=== PATIENT | male | born 1945 | race Caucasian/White ===

== ENCOUNTER 2020-04-07 13:59 | Outpatient (CLI) | payer MEDICARE, SELFPAY ==
--- NOTE | ~2020-04-07 | CT_ITS ---
EXAMINATION: CT abdomen pelvis wo con DATE: 04/07/2020 14:22 INDICATION: Left lower quadrant abdominal pain TECHNIQUE: Computed tomography (CT) of the abdomen and pelvis was performed without intravenous contr ast. Automated exposure control and iterative reconstruction technique were employed. Exam dose: 407 .66 mGy-cm total exam DLP. COMPARISON: None. FINDINGS: The lung bases are clear of infiltrate or consolidation. Normal heart size. No pericardial or pleural effusion. Small sliding hiatal hernia. The liver, gallbladder, bile ducts, spleen are unremarkable. There is a solitary calcification of the pancreatic body which may indicate mild chronic pancreatitis. No pancreatic mass lesion or ductal di latation is evident. Normal morphology of the adrenal glands. Bilateral renal cysts are suggested including an upper pole approximately 1.5 cm left renal cyst and multiple right parapelvic renal cysts. There is a punctate nonobstructing upper pole left renal calculus and a 4 mm lower pole left renal ca lculus and another punctate lower pole left renal calculus. No right renal calculus. No ureteral calc ulus or hydroureteronephrosis. The urinary bladder is unremarkable. There is prostate enlargement and prominent prostate calcifications. Normal appendix. There are numerous diverticula of the left and right colon; no CT evidence of divert iculitis. No bowel obstruction, bowel wall thickening, pneumatosis or intraperitoneal free air. There is a fat-containing umbilical hernia. There is diffuse osteopenia. There is degenerative change of the thoracic and lumbar spine. IMPRESSION: Small sliding hiatal hernia Solitary pancreatic body calcification which may indicate mild chronic pancreatitis Bilateral renal cysts Nonobstructive left nephrolithiasis Prostate enlargement and prominent prostate calcifications Diverticulosis of left and right colon Reviewed, dictated and finalized at [facility]. Reviewed, dictated and finalized at location B. ON WEIGHER OPERATOR IMPRESSION: Small sliding hiatal hernia Solitary pancreatic body calcification which may indicate mild chronic pancreat itis Bilateral renal cysts Nonobstructive left nephrolithiasis Prostate enlargement and prominent prostate calcifications Diverticulosis of left and right colon
== END 2020-04-07 14:00 | disposition home or self-care (01) ==
PROVIDERS: PCP Internal Medicine; Visit Provider Internal Medicine
DX: R10.32 Left lower quadrant pain (principal); K44.9 Diaphragmatic hernia without obstruction or gangrene; K86.89 Other specified diseases of pancreas; N28.1 Cyst of kidney, acquired; N20.0 Calculus of kidney; N40.0 Benign prostatic hyperplasia without lower urinary tract symptoms; K57.90 Diverticulosis of intestine, part unspecified, without perforation or abscess without bleeding
CPT/HCPCS: 74176

== ENCOUNTER 2020-07-20 19:35 | Emergency (ER) | payer MEDICARE, SELFPAY ==
--- NOTE | ~2020-07-20 | XR_ITS ---
EXAMINATION: XR ankle LT min 3V DATE: 07/20/2020 21:07 INDICATION: Left ankle pain TECHNIQUE: Anteroposterior, lateral, mortise, and additional oblique view of the ankle were obtained. COMPARISON: None. FINDINGS: There is no fracture, dislocation, or subluxation. The bones, soft tissues, and joint space s are normal. IMPRESSION: 1. No acute osseous abnormality. Reviewed, dictated and finalized at location A. T METAL WORKER MAINTENANCE
[2020-07-20 19:42] VITALS: BP 119/76; PULSE 89; RESP 18; TEMP 36.2; O2SAT 96
[2020-07-20 21:00] LABS: Basophils Absolute Auto 0.1 K/mm3 (0.0-0.1); Basophils Percent Auto 0.7 % (0.2-1.2); Eosinophils Absolute Auto 0.8 K/mm3 (0-0.3); Eosinophils Percent Auto 7.7 % (0-4.4); Hematocrit 43.5 % (42.0-52.0); Hemoglobin 14.8 g/dL (14.0-18.0); Immature Granulocyte Absolute 0.06 K/mm3 (0.00-0.031); Immature Granulocyte Percent A 0.6 % (0-0.5); Lymphocytes Absolute Auto 2.05 K/mm3 (0.9-3.2); Lymphocytes Percent Auto 20.4 % (18.3-44.2); Mean Corpuscular Volume 94.2 fl (80-100); Mean Platelet Volume 9.8 fl (7.4-10.4); Monocytes Absolute Auto 1.1 K/mm3 (0.1-0.6); Monocytes Percent Auto 10.9 % (2.6-8.5); Neutrophils Percent Auto 59.7 % (45.5-73.1); Platelet Count Result 214 k/mm3 (150-375); Red Blood Count 4.62 M/mm3 (4.6-6.20); White Blood Count 10.1 K/mm3 (4.5-10.0)
--- NOTE | 2020-07-20 21:08 | ED.GENADULT ---
HPI - General Adult General Chief complaint: Extremity Problem,Nontraumatic Stated complaint: left ankle swelling Time Seen by Provider: 07/20/20 20:47 Source: patient History of Present Illness HPI narrative: Patient is a 74 y/o complaining of left ankle pain for 1 week. He describes his pain as aching and rates it as 3/10. He states that walking aggravates his pain. There is no pain radiation. He denies any injury. Related Data Home Medications Medication Instructions Recorded Confirmed aspirin 81 mg tablet,delayed 81 mg PO DAILY 04/06/19 03/31/20 release Allergies Allergy/AdvReac Type Severity Reaction Status Date / Time latex AdvReac Mild Rash Verified 07/20/20 19:46 Review of Systems Constitutional: Constitutional: Denies chills, Denies fever(s), Denies headache(s) and Denies weakness Eyes: Eyes: Denies blurry vision ENT: Denies headache(s) and Denies neck pain Cardiovascular: Cardiovascular: Denies chest pain and Denies dyspnea Respiratory: Respiratory: Denies cough and Denies dyspnea Gastrointestinal: Gastrointestinal: Denies abdominal pain, Denies diarrhea, Denies nausea and Denies vomiting Genitourinary: Genitourinary: Denies hematuria and Denies dysuria Musculoskeletal: Musculoskeletal: Reports as per HPI, Denies back pain, Reports arthralgias (left ankle pain) and Denies neck pain Neurologic: Denies headache(s) and Denies weakness PMFSH Past Medical History Medical History (Updated 07/21/20 @ 00:00 by Background Daemon) Family history of leukemia Other and unspecified hyperlipidemia Paroxysmal atrial fibrillation Sleep apnea in adult Surgical History Surgical History H/O colonoscopy H/O hernia repair History of knee replacement, total Family History Family History Mother Family history of osteoporosis Family history of Parkinson's disease, Onset Age: 76 Patient's mother is Sibling Patient's sister is in good health Patient's brother is in good health Father Patient's father is Other Family history of carrier of genetic disease Family history of leukemia Social History Social History Smoking status: Former smoker Smoking end date: 05/22/73 Gender identity (if verbalized by the patient): Male Exam Const: General: no acute distress and well developed Orientation/consciousness: oriented to person, oriented to place, oriented to time and patient oriented x3 HENMT: Head: normocephalic Ears: external ears normal General nose exam: Normal external nose present Eyes: General: appearance normal, both eyes and all related structures Conjunctivae: conjunctivae normal Neck: Neck: normal visual inspection and full ROM Chest: Chest palpation & inspection: normal inspection of the chest and no tenderness Resp: Effort & Inspection: normal respiratory effort Auscultation: clear to auscultation bilaterally Cardio: Rate: regular rate Rhythm: regular rhythm GI: GI Palp: No abdominal tenderness and Yes Soft to palpation Skin: General skin exam: normal color and turgor normal Neuro: General: oriented to person, oriented to place, oriented to time and patient oriented x3 Cognition (Neuro): normal cognition Extrem: General: full ROM Left lower extremity: ankle Details: tenderness Location: of the medial malleolus, pitting edema and warmth Psych: Appearance: grossly normal Mental Status: mental status grossly normal Affect: normal affect Course Vital Signs Vital signs: Vital Signs Temperature 36.2 C L 07/20/20 19:42 Pulse Rate 89 07/20/20 19:42 Respiratory Rate 18 07/20/20 19:42 Blood Pressure 119/76 07/20/20 19:42 Pulse Oximetry 96 07/20/20 19:42 Temperature 36.2 C L 07/20/20 19:42 Pulse Rate 89 07/20/20 19:42 Respiratory Rate 18
[2020-07-20 21:12] LABS: Anion Gap 6 mmol/L (8-16); Blood Urea Nitrogen 26 mg/dL (9-20); Calcium 9.6 mg/dL (8.4-10.2); Carbon Dioxide 28 mmol/L (22-30); Chloride 108 mmol/L (98-107); Estimated CRCL calculation 47 ml/min; Estimated Glomerular Filt Rate 59; Glucose 115 mg/dL (75-110); Potassium 4.2 mmol/L (3.4-5.0); Sodium 142 mmol/L (137-145); Uric Acid 6.9 mg/dL (3.5-8.5)
[2020-07-20] MEDS: predniSONE 20 MG TABLET PO (22:02)
[2020-07-20] MEDS: COLCHICINE 0.6 MG TABLET 1.2 MG PO (22:02)
== END 2020-07-20 22:44 | disposition home or self-care (01) ==
PROVIDERS: Emergency Provider Emergency Medicine; PCP Internal Medicine
DX: M10.9 Gout, unspecified (principal); I48.0 Paroxysmal atrial fibrillation; E78.5 Hyperlipidemia, unspecified; G47.30 Sleep apnea, unspecified; Z87.891 Personal history of nicotine dependence; Z96.659 Presence of unspecified artificial knee joint; Z79.82 Long term (current) use of aspirin
CPT/HCPCS: 36415; 73610; 80048; 84550; 85025; 99283; A9270; J7512

== ENCOUNTER 2020-07-29 16:59 | Outpatient (CLI) | payer MEDICARE, SELFPAY ==
--- NOTE | ~2020-07-29 | MR_ITS ---
EXAMINATION: MR ankle LT wo con DATE: 07/29/2020 17:51 INDICATION: Left ankle pain. TECHNIQUE: Magnetic resonance imaging (MRI) of the left ankle was performed without intravenous contr ast. Sequences included sagittal PD-weighted FS FSE, sagittal PD-weighted FSE, coronal PD-weighted FS FSE, coronal PD-weighted FSE, axial PD-weighted FS FSE, and axial PD-weighted FSE. COMPARISON: Left ankle radiographs 07/20/2020 FINDINGS: Medial ankle ligaments: There are changes of prior sprain of the deltoid ligament characterized by thickening and increased s ignal intensity in the superficial component and indistinctness of fibers in the deep component. Lateral ankle ligaments: The anterior and posterior talofibular ligaments are intact. There are changes of prior sprains of ca lcaneofibular ligament and anterior tibiofibular ligament characterized by thickening and increased s ignal intensity. Posterior tibiofibular ligament is intact. Tendons: The medial and anterior ankle tendons are normal. The peroneal tendons are normal. Achilles tendon is normal. Plantar fascia: Normal. Bones/other: Bone alignment is normal. There is partial-thickness cartilage loss in the tibiotalar joint, worst an teromedially. There is mild osteoarthritis of the midfoot joints. Fluid: There are small ankle joint and subtalar joint effusions. There is a small talonavicular joint effusi on. There is subcutaneous edema around the ankle. IMPRESSION: 1. Moderate chondrosis of tibiotalar joint. Mild midfoot osteoarthritis. 2. Changes of prior medial and lateral ankle sprains. Reviewed, dictated and finalized at location A. 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
== END 2020-07-29 17:00 | disposition home or self-care (01) ==
PROVIDERS: PCP Internal Medicine; Visit Provider Internal Medicine
DX: M19.072 Primary osteoarthritis, left ankle and foot (principal)
CPT/HCPCS: 73721

== ENCOUNTER 2022-08-04 08:15 | Outpatient (CLI) | payer MEDICARE, SELFPAY ==
[2022-08-04 19:45] LABS: Alanine Aminotransferase 17 U/L (6-50); Albumin Level 4.1 g/dL (3.5-5.1); Alkaline Phosphatase 92 U/L (38-126); Anion Gap 5 mmol/L (8-16); Aspartate Amino Transferase 31 U/L (17-59); Bilirubin,Total 0.9 mg/dL (0.2-1.3); Blood Urea Nitrogen 22 mg/dL (9-20); Calcium 9.4 mg/dL (8.4-10.2); Carbon Dioxide 28 mmol/L (22-30); Chloride 108 mmol/L (98-107); Cholesterol 174 mg/dL (0-200); Estimated Glomerular Filt Rate > 60; Glucose 70 mg/dL (65-110); HDL Direct 47 mg/dL; Potassium 4.3 mmol/L (3.4-5.0); Sodium 141 mmol/L (137-145); Triglycerides 65 mg/dL (<150)
[2022-08-04 19:55] LABS: LDL Cholesterol Direct 95 mg/dL
[2022-08-04 20:47] LABS: Hematocrit 43.5 % (42.0-52.0); Hemoglobin 14.3 g/dL (14.0-18.0); Mean Corpuscular HGB Conc 32.9 g/dl (32-36); Mean Corpuscular Hemoglobin 31.3 pg (26-34); Mean Corpuscular Volume 95.2 fl (80-100); Mean Platelet Volume 10.3 fl (7.4-10.4); Platelet Count Result 219 k/mm3 (150-375); Red Blood Count 4.57 M/mm3 (4.6-6.20); Red Cell Distribution Width 13.6 % (11.5-14.5); White Blood Count 7.3 K/mm3 (4.5-10.0)
[2022-08-04 20:57] LABS: Hemoglobin A1C 5.2 % (<5.7)
[2022-08-07 19:58] LABS: PSA, Free 0.25 ng/mL; PSA, Total 0.9 ng/mL (<=4.0)
== END 2022-08-04 08:16 | disposition home or self-care (01) ==
LOC: ANHGOSHLAB 08:18
PROVIDERS: PCP Internal Medicine; Visit Provider Internal Medicine
DX: R53.83 Other fatigue (principal); Z79.899 Other long term (current) drug therapy; N40.1 Benign prostatic hyperplasia with lower urinary tract symptoms; N13.8 Other obstructive and reflux uropathy; I48.0 Paroxysmal atrial fibrillation
CPT/HCPCS: 36415; 80053; 80061; 83036; 84153; 84154; 84443; 85027

== ENCOUNTER 2023-04-18 08:30 | Outpatient (CLI) | payer MEDICARE, SELFPAY ==
[2023-04-18 09:04] LABS: Hematocrit 45.5 % (42.0-52.0); Hemoglobin 14.7 g/dL (14.0-18.0); Mean Corpuscular HGB Conc 32.3 g/dl (32-36); Mean Corpuscular Hemoglobin 31.3 pg (26-34); Mean Platelet Volume 10.3 fl (7.4-10.4); Platelet Count Result 213 k/mm3 (150-375); Red Blood Count 4.69 M/mm3 (4.6-6.20); Red Cell Distribution Width 13.4 % (11.5-14.5); White Blood Count 7.3 K/mm3 (4.5-10.0)
[2023-04-18 09:27] LABS: Alanine Aminotransferase 18 U/L (6-50); Albumin Level 4.2 g/dL (3.5-5.1); Alkaline Phosphatase 86 U/L (38-126); Anion Gap 6 mmol/L (8-16); Aspartate Amino Transferase 38 U/L (17-59); Bilirubin,Total 1.1 mg/dL (0.2-1.3); Blood Urea Nitrogen 19 mg/dL (9-20); Calcium 9.4 mg/dL (8.4-10.2); Carbon Dioxide 30 mmol/L (22-30); Chloride 105 mmol/L (98-107); Estimated Glomerular Filt Rate > 60; Glucose 89 mg/dL (65-110); Potassium 4.4 mmol/L (3.4-5.0); Sodium 141 mmol/L (137-145)
== END 2023-04-18 08:31 | disposition home or self-care (01) ==
LOC: ANHLAB 08:33
PROVIDERS: PCP Family Medicine; Visit Provider Family Medicine
DX: E78.5 Hyperlipidemia, unspecified (principal); G47.33 Obstructive sleep apnea (adult) (pediatric); I48.0 Paroxysmal atrial fibrillation; N13.8 Other obstructive and reflux uropathy; N40.1 Benign prostatic hyperplasia with lower urinary tract symptoms; R53.83 Other fatigue
CPT/HCPCS: 36415; 80053; 85027

== ENCOUNTER 2023-08-16 07:55 | Outpatient (CLI) | payer MEDICARE, SELFPAY ==
[2023-08-16 09:31] LABS: Hematocrit 46.2 % (42.0-52.0); Hemoglobin 14.6 g/dL (14.0-18.0); Mean Corpuscular HGB Conc 31.6 g/dl (32-36); Mean Corpuscular Hemoglobin 31.1 pg (26-34); Mean Corpuscular Volume 98.3 fl (80-100); Mean Platelet Volume 10.7 fl (7.4-10.4); Platelet Count Result 201 k/mm3 (150-375); Red Cell Distribution Width 13.3 % (11.5-14.5); White Blood Count 6.9 K/mm3 (4.5-10.0)
[2023-08-16 09:50] LABS: Alanine Aminotransferase 12 U/L (6-50); Alkaline Phosphatase 82 U/L (38-126); Anion Gap 4 mmol/L (4-12); Aspartate Amino Transferase 29 U/L (17-59); Bilirubin,Total 0.9 mg/dL (0.2-1.3); Blood Urea Nitrogen 23 mg/dL (9-20); Calcium 9.6 mg/dL (8.4-10.2); Carbon Dioxide 28 mmol/L (22-30); Chloride 106 mmol/L (98-107); Cholesterol 176 mg/dL (0-200); Estimated Glomerular Filt Rate > 60; Glucose 86 mg/dL (65-110); HDL Direct 53 mg/dL; Potassium 4.1 mmol/L (3.4-5.0); Sodium 138 mmol/L (137-145); Triglycerides 60 mg/dL (<150)
[2023-08-16 10:02] LABS: LDL Cholesterol Direct 103 mg/dL
[2023-08-16 10:20] LABS: Prostate Specific Antigen 1.7 ng/mL (< OR = 4.0)
== END 2023-08-16 07:56 | disposition home or self-care (01) ==
PROVIDERS: PCP Family Medicine; Visit Provider Family Medicine
DX: Z12.5 Encounter for screening for malignant neoplasm of prostate (principal); E78.5 Hyperlipidemia, unspecified; G47.33 Obstructive sleep apnea (adult) (pediatric); I48.0 Paroxysmal atrial fibrillation; N13.8 Other obstructive and reflux uropathy; N40.1 Benign prostatic hyperplasia with lower urinary tract symptoms; R53.83 Other fatigue
CPT/HCPCS: 36415; 80053; 80061; 84153; 85027; G0103

== ENCOUNTER 2024-02-27 09:52 | Outpatient (CLI) | payer MEDICARE, SELFPAY ==
[2024-02-27 10:17] LABS: Hematocrit 45.4 % (42.0-52.0); Hemoglobin 14.8 g/dL (14.0-18.0); Mean Corpuscular HGB Conc 32.6 g/dl (32-36); Mean Corpuscular Hemoglobin 31.6 pg (26-34); Mean Platelet Volume 9.8 fl (7.4-10.4); Platelet Count Result 196 k/mm3 (150-375); Red Blood Count 4.68 M/mm3 (4.6-6.20); Red Cell Distribution Width 13.2 % (11.5-14.5)
[2024-02-27 10:34] LABS: Alanine Aminotransferase 14 U/L (6-50); Albumin Level 4.3 g/dL (3.5-5.1); Alkaline Phosphatase 91 U/L (38-126); Anion Gap 8 mmol/L (4-12); Aspartate Amino Transferase 35 U/L (17-59); Bilirubin,Total 1.6 mg/dL (0.2-1.3); Blood Urea Nitrogen 22 mg/dL (9-20); Calcium 9.6 mg/dL (8.4-10.2); Carbon Dioxide 29 mmol/L (22-30); Chloride 103 mmol/L (98-107); Estimated Glomerular Filt Rate > 60; Glucose 85 mg/dL (65-110); Potassium 4.3 mmol/L (3.4-5.0); Sodium 140 mmol/L (137-145)
== END 2024-02-27 09:53 | disposition home or self-care (01) ==
PROVIDERS: PCP Family Medicine; Visit Provider Family Medicine
DX: G47.30 Sleep apnea, unspecified (principal); I48.0 Paroxysmal atrial fibrillation; R53.83 Other fatigue; N40.1 Benign prostatic hyperplasia with lower urinary tract symptoms; N13.8 Other obstructive and reflux uropathy; Z12.5 Encounter for screening for malignant neoplasm of prostate
CPT/HCPCS: 36415; 80053; 85027

== ENCOUNTER 2024-12-04 10:01 | Outpatient (CLI) | payer MEDICARE, SELFPAY ==
--- OUTSIDE RECORDS SUMMARY | 2024-12-04 10:14 | XMS_ITS | Clinical Summary ---
Author Organization [facility] [employer] Address [address] [place] [address] Care Team Providers Care General Utility Worker Name Role Phone Tyler Del Castillo DO Primary Care Provider Kalpesh Pavon MD Unavailable [phone] Source Comments [facility],non-owned Affiliates and Associated Physician Practices is amultiple site organization consisting of ambulatory clinics and hospital sitesin [place], [place], [place] and [place]. This disclosure is being madepursuant to the Care Everywhere program and may not contain all information available regarding this patient. Last updated 18.[facility] [employer] Allergies Active Allergy Reactions Criticality Noted Date Comments Latex Rash Medium Medications * Be aware that medications may not be up to date on this document. Alwaysverify current medications with the patient. finasteride (PROSCAR) 5 MG tablet TK 1 T PO QD 3 07/31/2015 Active aspirin (ASPIRIN) 81 MG tablet Take 81 mg by mouth once daily Active tamsulosin (Flomax) 0.4 MG capsule TAKE 1 CAPSULE BY MOUTH EVERY DAY AT BEDTIME 03/07/2024 Active celecoxib (CeleBREX) 200 MG capsule Take 1 (one) capsule by mouth once daily 30 capsule 07/30/2024 Active Active Problems Problem Noted Date Diagnosed Date Primary osteoarthritis of left knee 08/09/2024 Status post right knee replacement 08/09/2024 Lipid screening 09/23/2019 Overview (09/23/2019): 11/07 Cholesterol 175 HDL 62 LDL 97 triglyceride 69, glucose 86 ARELI on CPAP 09/19/2019 Syncope, near 09/18/2019 Overview (10/21/2019): 10/08 Holter x 2 weeks: no critical tachy/po per Dr. Pinto Palpitations 09/18/2019 Dilated cardiomyopathy 09/17/2019 Overview (10/21/2019): 07/30 Echo: EF 60%, mild MR/TR, trace PI, PA SP 28 10/30 Lexiscan nuclear: Large inferior/inferoseptal infarct with tamara-infarct ischemia, EF 61% 10/30 cath: EF 45-50%, LV 131/13, normal coronary arteries 12/04 Echo: EF 45%, mild LVH, cannot rule out LV thrombus, mild , mean gradient 9, trace TR, RVSP 28 09/08 Echo: EF 40%, upper normal LV size, mild AV sclerosis, probably mild PI, trace MR/TR, RVSP 28-33 10/08 Cardiac MRI: EF 49%, mild LVE, no edema/infarct/inflammation/infiltration, normal RV, mild LAE, mild AI, no LV thrombus LBBB (left bundle branch block) PAF (paroxysmal atrial fibrillation) Overview (09/17/2019): 07/30 EKG: AF at 134, LBBB at 128 ms, nonspecific ST/TW abnormality, leftward axis, delayed R-wave progression 09/29 EKG: SB at 56, LBBB at 145 ms 11/04 EKG: SB at 57, LBBB at 151 ms 01/04 EKG: SB at 56, LBBB at 142 ms, delayed R-wave progression 04/09 EKG: SR at 73, PVC, possible LAE, LBBB at 138 ms Resolved Problems Problem Noted Date Diagnosed Date Resolved Date Arthritis of knee 05/08/2019 09/17/2019 Atrial fibrillation 09/17/19 20 Family History Medical History Relation Name Comments Cancer - Other Father Relation Name Status Comments Father Social History Tobacco Use Types Packs/Day Years Used Date Smoking Tobacco: Former Cigarettes Q uit: 06/30/1974 Smokeless Tobacco: Never Alcohol Use Standard Drinks/Week Comments Not Currently 0 (1 standard drink = 0.6 oz pur e alcohol) Sex and Gender Information Value Date Recorded Sex Assigned at Not on file Legal Sex Male 3:32 PM CDT Gender Identity Not on file Sexual Orientation Not on file Last Filed Vital Signs Vital Sign Reading Time Taken Comments Blood Pressure 132/73 09/19/2019 8:24 AM CDT Pulse 63 09/19/2019 8:24 AM CDT Temperature 36.3 C (97.3 F) 05/10/2019 7:37 AM DOPE FIRER Respiratory Rate 18 05/10/2019 7:37 AM DOPE FIRER Oxygen Saturation 96% 09/19/2019 8:24 AM CDT Inhaled Oxygen Concentration - - Weight 81.6 kg (180 lb) 09/19/2019 8:24 AM CDT Height 170.2 cm (5' 7) 09/19/2019 8:24 AM CDT Body Mass Index 28.19 09/19/2019 8:24 AM CDT Plan of Treatment Health Maintenance Due Date Last Done Comments MEDICARE AWV 12 MONTHS 1945 HEPATITIS C SCREENING 08/27/1964 DTAP/TDAP/TD VACCINES (1 - Tdap) 1965 PNEUMOCOCCAL VACCINE 50+ (1 of 1 - PCV) 1996 ZOSTER VACCINE (1 of 2) 1996 Respiratory Syncytial Virus (RSV) Vaccine Pt: or over 60 yrs (1 - 1-dose 75+ series) 2021 COVID-19 VACCINE ( - 2023-2 5 season) 2024 DEPRESSION SCREENING 05/22/2024 INFLUENZA VACCINE (#1) 2025 HEPATITIS B VACCINE Aged Out No longe r eligible based on patient's age to complete this topic HIB VACCINE Aged Out No longer eligi ble based on patient's age to complete this topic HPV VACCINE Aged Out No longer eligi ble based on patient's age to complete this topic MENINGOCOCCAL (Group B) VACC INE SHARED DECISION-MAKING Aged Out No longer eligibl e based on patient's age to complete this topic MENINGOCOCCAL GROUPS A/C/Y/W VACCINE Aged Out No longer eligible b ased on patient's age to complete this topic Medical Devices Implanted Type Area Trust Evaluation Supervisor Device Identifier Shelf Expiration Date Model / Serial / Lot Cmnt Bone Djo Srg Cblt 40gm Hvisc Strl Implanted:Qty: 2 on 05/08/2019 by Kalpesh Pavon MD at [facility] Right: Knee [employer] 06/13/2020 [id number] / / [id number] Tray Tib 83mm Kn Cocr I Beam Implanted:Qty: 1 on 05/08/2019 by Kalpesh Pavon MD at [facility] Right: Knee [employer] 03/28/2029 [id number] / / [id number] Cmpnt Ptlr 31mm 1 Pg Wire Ascnt Arcm Kn Implanted:Qty: 1 on 05/08/2019 by Kalpesh Pavon MD at [facility] Right: Knee [employer] 03/29/2024 [id number] / / [id number] Cmpnt Fem Kn Rt Cr Cmnt Prm Vngrd Intlk Implanted:Qty: 1 on 05/08/2019 by Kalpesh Pavon MD at [facility] Right: Knee [employer] 03/23/2029 [id number] / / [id number] Brng [id number] Vngrd Arcm Kn Ant Stab Implanted:Qty: 1 on 05/08/2019 by Kalpesh Pavon MD at [facility] Right: Knee [employer] 11/15/2023 [id number] / / [id number] Insurance MEDICARE SUPPLEMENT PAYOR GENERIC MEDICARE Advance Directives * Full Code (Latest Code Status on File) Date Activated Date Inactivated Comments 05/08/2019 3:36 PM 05/10/2019 2:21 PM Care Teams General Utility Worker Relationship Specialty Start Date End Date Tyler Del Castillo DO [address] [place], [place] [id number] PCP - General Internal Medicine 02/28/19 [place] [id number] [address] [address] Orthopedic Surgery 02/28/19
[2024-12-04 11:19] LABS: Hematocrit 45.8 % (42.0-52.0); Hemoglobin 14.7 g/dL (14.0-18.0); Immature Granulocyte Percent A 0.5 % (0-0.5); Lymphocytes Absolute Auto 1.77 K/mm3 (0.9-3.2); Mean Corpuscular HGB Conc 32.1 g/dl (32-36); Mean Corpuscular Hemoglobin 31.1 pg (26-34); Mean Corpuscular Volume 96.8 fl (80-100); Nucleated Red Blood Cells Absolute Auto 0.000 K/mm3 (0.0-0.012); Nucleated Red Blood Cells Perc 0.0 % (0.0-0.2); Platelet Count Result 214 k/mm3 (150-375); Red Blood Count 4.73 M/mm3 (4.6-6.20); White Blood Count 7.9 K/mm3 (4.5-10.0)
[2024-12-04 11:27] LABS: Alanine Aminotransferase 12 U/L (6-50); Albumin Level 4.2 g/dL (3.5-5.1); Alkaline Phosphatase 97 U/L (38-126); Anion Gap 6 mmol/L (4-12); Aspartate Amino Transferase 34 U/L (17-59); Bilirubin,Total 0.6 mg/dL (0.2-1.3); Blood Urea Nitrogen 20 mg/dL (9-20); Calcium 9.6 mg/dL (8.4-10.2); Carbon Dioxide 26 mmol/L (22-30); Chloride 107 mmol/L (98-107); Cholesterol 191 mg/dL (0-200); Estimated Glomerular Filt Rate > 60; Glucose 85 mg/dL (65-110); HDL Direct 56 mg/dL; Magnesium 2.1 mg/dL (1.6-2.3); Potassium 4.3 mmol/L (3.4-5.0); Sodium 139 mmol/L (137-145); Total Protein 6.9 g/dL (6.3-8.2); Triglycerides 136 mg/dL (<150)
[2024-12-04 12:03] LABS: Prostate Specific Antigen 2.3 ng/mL (< OR = 4.0)
[2024-12-04 12:22] LABS: Vitamin B12 268.0 pg/mL (239-931)
== END 2024-12-04 10:02 | disposition home or self-care (01) ==
LOC: ANHLAB 10:02
PROVIDERS: PCP Family Medicine; Visit Provider Family Medicine
DX: I48.0 Paroxysmal atrial fibrillation (principal); E78.5 Hyperlipidemia, unspecified; N40.1 Benign prostatic hyperplasia with lower urinary tract symptoms; N13.8 Other obstructive and reflux uropathy; R53.83 Other fatigue; Z00.00 Encounter for general adult medical examination without abnormal findings; Z12.5 Encounter for screening for malignant neoplasm of prostate; Z79.899 Other long term (current) drug therapy
CPT/HCPCS: 36415; 80053; 80061; 82172; 82306; 82607; 83735; 84153; 85025; G0103